=== PATIENT | female | born 1965 | race Caucasian/White ===

== ENCOUNTER → 2017-07-17 | Outpatient (CLI) | payer MEDICARE, OTHER ==
[~2017-07-17] MED LIST: ALLO100 PO; ATOR40TA PO; ATORVASTATIN; Amoxicillin500 MG PO; CEFD300 PO; CELE200; CEPH500 PO; CODACE30 PO; CYCL10 PO; CYMBALTA; Cipro500 MG PO; DULO30; DULO30 PO; Diflucan100 MG PO; EXCEDRIN MIGRAINE; Excedrin Extra1 EACH PO; HYDACE10B PO; HYDACE5325 PO; HYDR1TAB94 PO; Hydrocodone-Ap1 EA20; Hydrocodone-Ap1 EA20 PO; Hydrocodone-Ap1 EA23; Hydrocodone-Ap1 EA23 PO; LISI20; LISI5 PO; MELO7.5 PO; METCAR500 PO; NAPR500 PO; NITR100CA PO; Naprosyn500 MG PO; Norco 10-325 T1 EACH PO; Norco 5-325 Ta1 EACH PO; OMEPRAZOLE MAGN20 MG PO; PROM25 PO; PSEU120ER; PSEU120ER PO; Prinivil10 MG PO; SUCR1 PO; Simvastatin20 MG PO; TAMS.4ER PO; Ultram50 MG PO; Zofran Odt4 MG PO; Zofran Odt4 MG SL
== END | disposition home or self-care (01) ==
LOC: LAB 14:23
DX: R30.0 Dysuria (principal); R31.9 Hematuria, unspecified; R39.89 Other symptoms and signs involving the genitourinary system
CPT/HCPCS: 87086

== ENCOUNTER 2017-07-18 17:59 | Emergency (ER) | payer MEDICARE, OTHER ==
[~2017-07-18] VITALS: Ht 165.1 cm; Wt 99.8 kg
[~2017-07-18 17:59] MED LIST changes: -ALLO100 PO; -ATOR40TA PO; -ATORVASTATIN; -Amoxicillin500 MG PO; -CEFD300 PO; -CELE200; -CYMBALTA; -DULO30; -DULO30 PO; -Excedrin Extra1 EACH PO; -HYDR1TAB94 PO; -Hydrocodone-Ap1 EA20; -Hydrocodone-Ap1 EA23; -Hydrocodone-Ap1 EA23 PO; -LISI20; -MELO7.5 PO; -NITR100CA PO; -Norco 10-325 T1 EACH PO; -OMEPRAZOLE MAGN20 MG PO; -Prinivil10 MG PO; -SUCR1 PO; -TAMS.4ER PO; -Ultram50 MG PO; -Zofran Odt4 MG PO
[2017-07-18 19:20] LABS: BASOPHILS ABSOLUTE AUTO 0.03 K/mm3 (0.00-0.23); BASOPHILS PERCENT AUTO 0 % (0-2); EOSINOPHILS ABSOLUTE AUTO 0.15 K/mm3 (0.00-0.68); EOSINOPHILS PERCENT AUTO 1 % (0-6); Hematocrit 48.7 % (33.0-51.0); Hemoglobin 16.3 g/dL (11.5-16.0); IMMATURE GRAN ABSOLUTE AUTO 0.04 K/mm3 (0.00-0.10); IMMATURE GRAN PERCENT AUTO 0 % (0-1); LYMPHOCYTES ABSOLUTE AUTO 0.82 K/mm3 (0.84-5.20); LYMPHOCYTES PERCENT AUTO 6 % (21-46); MONOCYTES ABSOLUTE AUTO 0.63 K/mm3 (0.16-1.47); MONOCYTES PERCENT AUTO 4 % (4-13); Mean Corpuscular HGB 30.8 pg (26.0-34.0); Mean Corpuscular HGB Conc 33.5 g/dL (31.5-36.5); Mean Corpuscular Volume 92 fL (80-100); Mean Platelet Volume 9.7 fL (9.1-12.4); NEUTROPHILS ABSOLUTE AUTO 12.79 K/mm3 (1.96-9.15); NEUTROPHILS PERCENT AUTO 88 % (41-73); Platelet Count 338 K/mm3 (150-400); RDW Coefficient Variation 13.6 % (11.7-14.2); RDW Standard Deviation 45.8 fL (35.1-46.3); White Blood Cell Count 14.46 K/mm3 (4.00-11.30)
[2017-07-18 19:46] LABS: Alanine Aminotransfer (ALT/SGP 28 U/L (12-78); Albumin, Blood 3.9 g/dL (3.4-5.0); Alk Phos 104 U/L (50-136); Anion Gap 7 mmol/L (6-16); Aspartate Aminotrans (AST/SGOT 18 U/L (12-37); Bilirubin, Total 0.4 mg/dL (0.1-1.0); Blood Urea Nitrogen 7 mg/dL (8-24); Bun/Creatinine Ratio 11.6 (12.0-20.0); CO2, Blood 24 mmol/L (21-32); Chloride, Blood 107 mmol/L (98-108); Globulin, Blood 4.1 g/dL (2.2-4.0); Glomerular Filtration Rate >60 (60-); Glucose, Blood 122 mg/dL (70-99); Potassium, Blood 4.2 mmol/L (3.5-5.5); Sodium, Blood 138 mmol/L (136-145); Troponin I <0.015 ng/mL (0.000-0.040)
[2017-07-18 20:57] LABS: Source, Urine Clean Catch
[2017-07-18 21:09] LABS: Bilirubin, Urine Neg (Neg); Blood, Urine 3+ (Neg); Glucose Qualitative, Urine Neg (Neg); Ketones, Urine 1+ (Neg); Leukocyte Esterase, Urine 2+ (Neg); Nitrite, Urine Neg (Neg); Protein, Urine Neg (Neg); Specific Gravity, Urine 1.015 (1.003-1.022); Urobilinogen, Urine 2+ (Normal)
[2017-07-18 21:17] LABS: Appearance, Urine Clear (Clear); Color, Urine Amber (P-Yellow)
[2017-07-18 21:19] LABS: Bacteria Mod /hpf; Calcium Oxalate Crystals Few /hpf; Red Blood Cells, Urine 0-2 /hpf (0-2); Squamous Epithelial Cells Few /hpf (Few); White Blood Cells, Urine 0-2 /hpf (0-5)
[2017-07-18] MEDS ORDERED: Amoxicillin500 MG PO (22:04)
[2017-07-18] MEDS ORDERED: HYDR1TAB94 PO (22:05)
[2017-11-07] MEDS ORDERED: Hydrocodone-Ap1 EA20 (11:50)
[2017-11-07] MEDS ORDERED: TAMS.4ER PO (11:50)
[2017-11-07] MEDS ORDERED: Prinivil10 MG PO (11:50)
[2017-11-07] MEDS ORDERED: DULO30 (11:50)
[2017-11-07] MEDS ORDERED: ATOR40TA PO (11:50)
[2017-11-07] MEDS ORDERED: Hydrocodone-Ap1 EA23 (11:50)
[2017-11-07] MEDS ORDERED: LISI20 (11:50)
[2017-11-07] MEDS ORDERED: CELE200 (11:50)
[2017-11-07] MEDS ORDERED: OMEPRAZOLE MAGN20 MG PO (12:42)
[2017-11-07] MEDS ORDERED: SUCR1 PO (12:42)
[2017-11-22] MEDS ORDERED: Ultram50 MG PO (02:33)
== END 2017-07-18 23:20 | disposition home or self-care (01) ==
LOC: ER 17:59
PROVIDERS: Physician Assistant
DX: N20.0 Calculus of kidney (principal); F17.200 Nicotine dependence, unspecified, uncomplicated; Z88.2 Allergy status to sulfonamides; Z88.7 Allergy status to serum and vaccine; Z88.5 Allergy status to narcotic agent; Z79.899 Other long term (current) drug therapy; Z87.442 Personal history of urinary calculi
CPT/HCPCS: 36415; 71046; 74176; 80053; 81001; 84484; 85025; 87086; 93005; 93010; 96361; 96374; 96375; 96376; 99284; J0696; J1170; J1885; J2405; J7030

== ENCOUNTER 2017-08-26 00:13 | Day surgery (SDC) | payer MEDICARE, OTHER ==
[~2017-08-26 00:13] MED LIST changes: +Amoxicillin500 MG PO; +HYDR1TAB94 PO
[2017-11-07] MEDS ORDERED: LISI20 (11:50)
[2017-11-07] MEDS ORDERED: Hydrocodone-Ap1 EA20 (11:50)
[2017-11-07] MEDS ORDERED: Prinivil10 MG PO (11:50)
[2017-11-07] MEDS ORDERED: TAMS.4ER PO (11:50)
[2017-11-07] MEDS ORDERED: DULO30 (11:50)
[2017-11-07] MEDS ORDERED: ATOR40TA PO (11:50)
[2017-11-07] MEDS ORDERED: Hydrocodone-Ap1 EA23 (11:50)
[2017-11-07] MEDS ORDERED: CELE200 (11:50)
[2017-11-07] MEDS ORDERED: OMEPRAZOLE MAGN20 MG PO (12:42)
[2017-11-07] MEDS ORDERED: SUCR1 PO (12:42)
[2017-11-22] MEDS ORDERED: Ultram50 MG PO (02:33)
== END 2017-08-26 22:51 | disposition home or self-care (01) ==
LOC: WOUND 00:13
DX: Z48.00 Encounter for change or removal of nonsurgical wound dressing (principal); S71.001A Unspecified open wound, right hip, initial encounter; E66.9 Obesity, unspecified; F17.210 Nicotine dependence, cigarettes, uncomplicated; S80.821A Blister (nonthermal), right lower leg, initial encounter
CPT/HCPCS: G0463

== ENCOUNTER 2017-10-27 02:22 | Emergency (ER) | payer MEDICARE, OTHER ==
[~2017-10-27] VITALS: Ht 165.1 cm; Wt 102.1 kg
[2017-10-27] MEDS ORDERED: CYMBALTA (02:43)
[2017-10-27] MEDS ORDERED: ATORVASTATIN (02:43)
[2017-10-27 02:57] LABS: Blood, Urine 2+ (Neg); Glucose Qualitative, Urine Neg (Neg); Ketones, Urine Neg (Neg); Leukocyte Esterase, Urine 2+ (Neg); Nitrite, Urine Neg (Neg); Protein, Urine 2+ (Neg); Specific Gravity, Urine 1.025 (1.003-1.022); Urobilinogen, Urine 1+ (Normal)
[2017-10-27 02:57] LABS: BASOPHILS ABSOLUTE AUTO 0.05 K/mm3 (0.00-0.23); BASOPHILS PERCENT AUTO 1 % (0-2); EOSINOPHILS ABSOLUTE AUTO 0.19 K/mm3 (0.00-0.68); EOSINOPHILS PERCENT AUTO 2 % (0-6); Hematocrit 46.2 % (33.0-51.0); Hemoglobin 15.6 g/dL (11.5-16.0); IMMATURE GRAN ABSOLUTE AUTO 0.04 K/mm3 (0.00-0.10); IMMATURE GRAN PERCENT AUTO 0 % (0-1); LYMPHOCYTES ABSOLUTE AUTO 2.91 K/mm3 (0.84-5.20); LYMPHOCYTES PERCENT AUTO 32 % (21-46); MONOCYTES ABSOLUTE AUTO 0.75 K/mm3 (0.16-1.47); MONOCYTES PERCENT AUTO 8 % (4-13); Mean Corpuscular HGB 30.3 pg (26.0-34.0); Mean Corpuscular HGB Conc 33.8 g/dL (31.5-36.5); Mean Corpuscular Volume 90 fL (80-100); Mean Platelet Volume 9.3 fL (9.1-12.4); NEUTROPHILS ABSOLUTE AUTO 5.13 K/mm3 (1.96-9.15); NEUTROPHILS PERCENT AUTO 57 % (41-73); Platelet Count 316 K/mm3 (150-400); RDW Standard Deviation 42.7 fL (35.1-46.3); Red Blood Cell Count 5.15 M/mm3 (3.80-5.20); White Blood Cell Count 9.07 K/mm3 (4.00-11.30)
[2017-10-27 03:04] LABS: Appearance, Urine Cloudy (Clear); Bilirubin, Urine 1+ (Neg); Color, Urine Yellow (P-Yellow)
[2017-10-27 03:05] LABS: Amorphous Light (0-Heavy); Bacteria Many /hpf; Calcium Oxalate Crystals Mod /hpf; Mucus Light (0-Heavy); Red Blood Cells, Urine 0-2 /hpf (0-2); Squamous Epithelial Cells Many /hpf (Few)
[2017-10-27 03:15] LABS: Alanine Aminotransfer (ALT/SGP 37 U/L (12-78); Albumin, Blood 3.8 g/dL (3.4-5.0); Alk Phos 112 U/L (50-136); Anion Gap 6 mmol/L (6-16); Aspartate Aminotrans (AST/SGOT 21 U/L (12-37); Bilirubin, Total 0.2 mg/dL (0.1-1.0); Blood Urea Nitrogen 16 mg/dL (8-24); Bun/Creatinine Ratio 26.8 (12.0-20.0); CO2, Blood 22 mmol/L (21-32); Calcium, Blood 9.4 mg/dL (8.5-10.1); Chloride, Blood 111 mmol/L (98-108); Globulin, Blood 3.9 g/dL (2.2-4.0); Glomerular Filtration Rate >60 (60-); Glucose, Blood 122 mg/dL (70-99); Potassium, Blood 4.3 mmol/L (3.5-5.5); Sodium, Blood 139 mmol/L (136-145); Total Protein, Blood 7.7 g/dL (6.4-8.2)
[2017-10-27] MEDS ORDERED: Norco 10-325 T1 EACH PO (04:08)
== END 2017-10-27 04:30 | disposition home or self-care (01) ==
LOC: ER 02:22
PROVIDERS: Emergency Medicine
DX: N20.0 Calculus of kidney (principal); F17.210 Nicotine dependence, cigarettes, uncomplicated; Z88.2 Allergy status to sulfonamides; Z88.7 Allergy status to serum and vaccine; Z88.5 Allergy status to narcotic agent; Z79.899 Other long term (current) drug therapy; Z87.442 Personal history of urinary calculi
CPT/HCPCS: 36415; 74176; 80053; 81001; 81025; 85025; 87086; 96374; 96375; 96376; 99284; J1885; J2405; J3010; J7030

== ENCOUNTER → 2017-10-30 | Outpatient (CLI) | payer MEDICARE, OTHER ==
[~2017-10-30] MED LIST changes: +ATORVASTATIN; +CYMBALTA; +Norco 10-325 T1 EACH PO
[2017-10-30 16:25] LABS: Source, Urine Clean Catch
[2017-10-30 18:00] LABS: Appearance, Urine Clear (Clear); Bilirubin, Urine Neg (Neg); Blood, Urine 3+ (Neg); Color, Urine Yellow (P-Yellow); Glucose Qualitative, Urine Neg (Neg); Ketones, Urine Neg (Neg); Leukocyte Esterase, Urine 2+ (Neg); Nitrite, Urine Neg (Neg); Protein, Urine Neg (Neg); Urobilinogen, Urine 1+ (Normal)
[2017-10-30 18:09] LABS: Bacteria Not Seen /hpf; Red Blood Cells, Urine Not Seen /hpf (0-2); Squamous Epithelial Cells Many /hpf (Few); White Blood Cells, Urine Not Seen /hpf (0-5)
[2017-10-30 18:10] LABS: Calcium Oxalate Crystals Many /hpf
== END | disposition home or self-care (01) ==
LOC: LAB SHORT 16:22 → LAB 16:22 → LAB FUT 10-29 16:25
PROVIDERS: Urology
DX: N39.0 Urinary tract infection, site not specified (principal)
CPT/HCPCS: 81001; 87086

== ENCOUNTER 2017-12-05 19:29 | Emergency (ER) | payer MEDICARE ==
[~2017-12-05] VITALS: Ht 165.1 cm; Wt 102.1 kg
[~2017-12-05 19:29] MED LIST changes: +ATOR40TA PO; +CELE200; +DULO30; +Hydrocodone-Ap1 EA20; +Hydrocodone-Ap1 EA23; +LISI20; +OMEPRAZOLE MAGN20 MG PO; +Prinivil10 MG PO; +SUCR1 PO; +TAMS.4ER PO; +Ultram50 MG PO
[2017-12-05] MEDS ORDERED: MELO7.5 PO (20:15)
[2017-12-05] MEDS ORDERED: Excedrin Extra1 EACH PO (20:16)
== END 2017-12-05 21:35 | disposition home or self-care (01) ==
LOC: ER 19:29
DX: R51 Headache (principal); M54.2 Cervicalgia; Z88.2 Allergy status to sulfonamides; Z88.7 Allergy status to serum and vaccine; Z88.5 Allergy status to narcotic agent; Z79.899 Other long term (current) drug therapy; Z87.442 Personal history of urinary calculi; F17.210 Nicotine dependence, cigarettes, uncomplicated
CPT/HCPCS: 96361; 96374; 96375; 99283; J1200; J1885; J2765; J7120

== ENCOUNTER → 2017-12-22 | Outpatient (CLI) | payer MEDICARE, OTHER ==
[~2017-12-22] MED LIST changes: +Excedrin Extra1 EACH PO; +MELO7.5 PO
[2017-12-23 08:27] LABS: Source, Urine Clean Catch
[2017-12-23 13:26] LABS: Blood, Urine 2+ (Neg); Glucose Qualitative, Urine Neg (Neg); Ketones, Urine Neg (Neg); Leukocyte Esterase, Urine 3+ (Neg); Nitrite, Urine Neg (Neg); Protein, Urine 2+ (Neg); Urobilinogen, Urine 1+ (Normal)
[2017-12-23 13:27] LABS: Bilirubin, Urine 1+ (Neg)
[2017-12-23 13:29] LABS: Appearance, Urine Turbid (Clear); Color, Urine Yellow (P-Yellow)
[2017-12-23 13:30] LABS: Amorphous Light (0-Heavy); Bacteria Few /hpf; Red Blood Cells, Urine 0-2 /hpf (0-2); Squamous Epithelial Cells Few /hpf (Few)
[2017-12-23 13:31] LABS: Calcium Oxalate Crystals Few /hpf
== END ==
LOC: LAB 19:00 → LAB SHORT 19:00
PROVIDERS: Nurse Practitioner Family
DX: R30.0 Dysuria (principal)
CPT/HCPCS: 81001

== ENCOUNTER 2018-03-02 10:41 | Day surgery (SDC) | payer MEDICARE, OTHER ==
[2018-03-02 12:03] LABS: Performing Lab VERACYTE; Test Name FNA
== END 2018-03-02 22:40 | disposition home or self-care (01) ==
LOC: US 10:41
PROVIDERS: Nurse Practitioner Family
PROC: 0GBH3ZX Excision of Right Thyroid Gland Lobe, Percutaneous Approach, Diagnostic (ICD-10-PCS; principal; 2018-03-02)
DX: E04.2 Nontoxic multinodular goiter (principal)
CPT/HCPCS: 10022; 76942

== ENCOUNTER 2018-05-08 08:59 | Emergency (ER) | payer MEDICARE, OTHER ==
[~2018-05-08] VITALS: Ht 165.1 cm; Wt 99.8 kg
[2018-05-08] MEDS ORDERED: NITR100CA PO (09:28)
[2018-05-08] MEDS ORDERED: DULO30 PO (09:28)
[2018-05-08] MEDS ORDERED: ALLO100 PO (09:29)
[2018-05-08] MEDS ORDERED: Hydrocodone-Ap1 EA23 PO (09:30)
[2018-05-08 09:44] LABS: Source, Urine Clean Catch
[2018-05-08 09:54] LABS: Bilirubin, Urine Neg (Neg); Blood, Urine 2+ (Neg); Glucose Qualitative, Urine Neg (Neg); Ketones, Urine Neg (Neg); Leukocyte Esterase, Urine 2+ (Neg); Nitrite, Urine Neg (Neg); Protein, Urine Neg (Neg); Urobilinogen, Urine NORM (Normal)
[2018-05-08 10:14] LABS: Appearance, Urine Clear (Clear); Color, Urine Yellow (P-Yellow)
[2018-05-08 10:16] LABS: White Blood Cells, Urine 25-50 /hpf (0-5)
[2018-05-08 10:17] LABS: Bacteria Few /hpf; Red Blood Cells, Urine 0-2 /hpf (0-2); Squamous Epithelial Cells Mod /hpf (Few)
[2018-05-08 10:40] LABS: BASOPHILS ABSOLUTE AUTO 0.06 K/mm3 (0.00-0.23); BASOPHILS PERCENT AUTO 0 % (0-2); EOSINOPHILS PERCENT AUTO 1 % (0-6); Hematocrit 44.6 % (33.0-51.0); Hemoglobin 14.6 g/dL (11.5-16.0); IMMATURE GRAN ABSOLUTE AUTO 0.06 K/mm3 (0.00-0.10); IMMATURE GRAN PERCENT AUTO 0 % (0-1); LYMPHOCYTES ABSOLUTE AUTO 1.49 K/mm3 (0.84-5.20); LYMPHOCYTES PERCENT AUTO 9 % (21-46); MONOCYTES ABSOLUTE AUTO 0.51 K/mm3 (0.16-1.47); MONOCYTES PERCENT AUTO 3 % (4-13); Mean Corpuscular HGB 29.8 pg (26.0-34.0); Mean Corpuscular HGB Conc 32.7 g/dL (31.5-36.5); Mean Corpuscular Volume 91 fL (80-100); NEUTROPHILS ABSOLUTE AUTO 13.62 K/mm3 (1.96-9.15); NEUTROPHILS PERCENT AUTO 85 % (41-73); Platelet Count 304 K/mm3 (150-400); RDW Coefficient Variation 13.2 % (11.7-14.2); RDW Standard Deviation 44.6 fL (35.1-46.3); White Blood Cell Count 15.94 K/mm3 (4.00-11.30)
[2018-05-08 11:09] LABS: Anion Gap 9 mmol/L (6-16); Blood Urea Nitrogen 13 mg/dL (8-24); Bun/Creatinine Ratio 18.5 (12.0-20.0); CO2, Blood 22 mmol/L (21-32); Calcium, Blood 9.4 mg/dL (8.5-10.1); Chloride, Blood 108 mmol/L (98-108); Glomerular Filtration Rate >60 (60-); Glucose, Blood 122 mg/dL (70-99); Potassium, Blood 3.9 mmol/L (3.5-5.5); Sodium, Blood 139 mmol/L (136-145)
[2018-05-08] MEDS ORDERED: CEFD300 PO (11:36)
[2018-05-08] MEDS ORDERED: Zofran Odt4 MG PO (11:36)
== END 2018-05-08 12:00 | disposition home or self-care (01) ==
LOC: ER 08:59
PROVIDERS: Emergency Medicine
DX: N12 Tubulo-interstitial nephritis, not specified as acute or chronic (principal); Z88.2 Allergy status to sulfonamides; Z88.7 Allergy status to serum and vaccine; Z88.5 Allergy status to narcotic agent; Z79.899 Other long term (current) drug therapy; Z87.442 Personal history of urinary calculi; Z87.891 Personal history of nicotine dependence
CPT/HCPCS: 36415; 80048; 81001; 85025; 87086; 96361; 96365; 96375; 99284-25; J0696; J1885; J2405; J7030

== ENCOUNTER → 2018-07-04 | Outpatient (CLI) | payer MEDICARE, OTHER ==
[~2018-07-04] MED LIST changes: +ALLO100 PO; +CEFD300 PO; +DULO30 PO; +Hydrocodone-Ap1 EA23 PO; +NITR100CA PO; +Zofran Odt4 MG PO
== END | disposition home or self-care (01) ==
LOC: LAB SHORT 16:54 → LAB EV 16:54
DX: N12 Tubulo-interstitial nephritis, not specified as acute or chronic (principal)
CPT/HCPCS: 87086

== ENCOUNTER 2019-12-12 12:25 | Day surgery (SDC) | payer MEDICARE, OTHER ==
[~2019-12-12] VITALS: Ht 165.1 cm; Wt 110.5 kg
[~2019-12-12 12:25] MED LIST changes: +Flonase 0.05% N16 GM; +METF500C; +OMEP20ER; +ZESTRIL40 M2
== END 2019-12-12 15:06 | disposition home or self-care (01) ==
LOC: ORSCSDS 12:25
PROVIDERS: Orthopaedic Surgery
PROC: 0LN70ZZ Release Right Hand Tendon, Open Approach (ICD-10-PCS; principal; 2019-12-12 13:50)
PROC: 01N50ZZ Release Median Nerve, Open Approach (ICD-10-PCS; principal; 2019-12-12 13:50)
DX: G56.01 Carpal tunnel syndrome, right upper limb (principal); I10 Essential (primary) hypertension; E11.9 Type 2 diabetes mellitus without complications; E78.5 Hyperlipidemia, unspecified; E78.00 Pure hypercholesterolemia, unspecified; E66.01 Morbid (severe) obesity due to excess calories; Z68.39 Body mass index [BMI] 39.0-39.9, adult; F17.210 Nicotine dependence, cigarettes, uncomplicated; Z79.82 Long term (current) use of aspirin; Z79.899 Other long term (current) drug therapy; Z79.84 Long term (current) use of oral hypoglycemic drugs
CPT/HCPCS: 82947; 93005; 93010; J0690; J2250; J7120

== ENCOUNTER → 2022-04-18 | Outpatient (CLI) | payer OTHER ==
[~2022-04-18] MED LIST changes: +CHLO25B PO; +Chantix1 MG; +Estradiol0.5 MG PO; +HYDACE10B; +HYDCHL25 PO; +LISI10 PO; +METO50ER PO; +OMEP20ER PO; +PIOG30 PO; +POTCIT10 PO; +Robaxin750 MG PO
[2022-04-18 13:14] LABS: BASOPHILS ABSOLUTE AUTO 0.05 K/mm3 (0.00-0.23); BASOPHILS PERCENT AUTO 1 % (0-2); EOSINOPHILS ABSOLUTE AUTO 0.13 K/mm3 (0.00-0.68); EOSINOPHILS PERCENT AUTO 2 % (0-6); Hematocrit 39.5 % (33.0-51.0); Hemoglobin 13.4 g/dL (11.5-16.0); IMMATURE GRAN ABSOLUTE AUTO 0.03 K/mm3 (0.00-0.10); IMMATURE GRAN PERCENT AUTO 0 % (0-1); LYMPHOCYTES ABSOLUTE AUTO 2.96 K/mm3 (0.84-5.20); LYMPHOCYTES PERCENT AUTO 42 % (21-46); MONOCYTES ABSOLUTE AUTO 0.41 K/mm3 (0.16-1.47); MONOCYTES PERCENT AUTO 6 % (4-13); Mean Corpuscular HGB 29.8 pg (26.0-34.0); Mean Corpuscular HGB Conc 33.9 g/dL (31.5-36.5); Mean Corpuscular Volume 88 fL (80-100); Mean Platelet Volume 10.2 fL (9.1-12.4); NEUTROPHILS ABSOLUTE AUTO 3.51 K/mm3 (1.96-9.15); NEUTROPHILS PERCENT AUTO 50 % (41-73); Platelet Count 355 K/mm3 (150-400); RDW Coefficient Variation 12.8 % (11.7-14.2); RDW Standard Deviation 40.3 fL (35.1-46.3); White Blood Cell Count 7.09 K/mm3 (4.00-11.30)
[2022-04-18 15:02] LABS: Bilirubin, Total 0.4 mg/dL (0.1-1.0); Bun/Creatinine Ratio 34.1 (12.0-20.0); Calcium, Blood 10.4 mg/dL (8.5-10.1); Creatinine, Blood 1.32 mg/dL (0.40-1.00); Globulin, Blood 4.1 g/dL (2.2-4.0); Total Protein, Blood 8.1 g/dL (6.4-8.2)
== END | disposition home or self-care (01) ==
LOC: LAB 13:07 → LAB SHORT 13:07
PROVIDERS: Physician Assistant
DX: R42 Dizziness and giddiness (principal)
CPT/HCPCS: 80053; 84484; 85025

== ENCOUNTER → 2022-06-03 | Outpatient (CLI) | payer OTHER | END | disposition home or self-care (01) | LOC: LAB 09:22 → LAB SHORT 09:22 | DX: D35.00 Benign neoplasm of unspecified adrenal gland (principal) | CPT/HCPCS: 81050 ==

== ENCOUNTER → 2022-07-15 | Outpatient (CLI) | payer OTHER | END | disposition home or self-care (01) | LOC: LAB 12:00 → LAB SHORT 12:00 | DX: N39.0 Urinary tract infection, site not specified (principal) | CPT/HCPCS: 87086 ==

== ENCOUNTER → 2022-07-15 | Outpatient (CLI) | payer OTHER ==
[2022-07-15 17:52] LABS: Microalb/Creat Ratio UR, Rand 15.344 mg/g (0.000-30.000); Microalbumin, Random Urine 20.1 mg/L (0.000-20.000)
== END | disposition home or self-care (01) ==
LOC: LAB 12:00 → LAB SHORT 12:00
PROVIDERS: Family Medicine
DX: E11.22 Type 2 diabetes mellitus with diabetic chronic kidney disease (principal); N18.9 Chronic kidney disease, unspecified; E11.65 Type 2 diabetes mellitus with hyperglycemia; E11.69 Type 2 diabetes mellitus with other specified complication
CPT/HCPCS: 82043; 82570

== ENCOUNTER → 2022-10-27 | Outpatient (CLI) | payer OTHER ==
[2022-10-31 15:07] LABS: HPV 16 Negative (Negative); HPV 18 Negative (Negative); HPV OTHER HR TYPES Negative (Negative)
== END | disposition home or self-care (01) ==
LOC: LAB SHORT 17:34 → LAB 17:34
PROVIDERS: Family Medicine
DX: Z01.419 Encounter for gynecological examination (general) (routine) without abnormal findings (principal)
CPT/HCPCS: 87624; G0145

== ENCOUNTER → 2024-05-10 | Outpatient (CLI) | payer OTHER ==
[2024-05-11 11:54] LABS: Campylobacter Sp Not Detected (NOT DETECT); Plesiomonas Shigelloides Not Detected (NOT DETECT); Salmonella Sp Not Detected (NOT DETECT)
[2024-05-11 11:55] LABS: Adenovirus F 40/41 Not Detected (NOT DETECT); Astrovirus Not Detected (NOT DETECT); Cryptosporidium Not Detected (NOT DETECT); Cyclospora Cayetanensis Not Detected (NOT DETECT); E. Coli O157 Not Detected (NOT DETECT); Entamoeba Histolytica Not Detected (NOT DETECT); Enteroaggregative E. coli-EAEC Not Detected (NOT DETECT); Enteropathogenic E. coli-EPEC Not Detected (NOT DETECT); Enterotoxigenic E. coli-ETEC Not Detected (NOT DETECT); Giardia Lamblia Not Detected (NOT DETECT); Norovirus GI/GII Not Detected (NOT DETECT); Rotavirus A Not Detected (NOT DETECT); Sapovirus Not Detected (NOT DETECT); Shiga Toxin-prod E. coli-STEC Not Detected (NOT DETECT); Shigella/Enteroin E. coli-EIEC Not Detected (NOT DETECT); Vibrio Cholerae Not Detected (NOT DETECT); Vibrio Sp Not Detected (NOT DETECT); Yersinia Enterocolitica Not Detected (NOT DETECT)
== END ==
LOC: LAB 15:23 → LAB SHORT 15:23
PROVIDERS: Family Medicine
DX: R19.7 Diarrhea, unspecified (principal)
CPT/HCPCS: 87507

== ENCOUNTER → 2024-08-18 | Outpatient (CLI) | payer OTHER ==
[2024-08-18 20:02] LABS: Calcium, Urine 26.4 mg/dL (< 17.5); Calcium, Urine Calculation 541.2 mg/24hrs (42.0-353.0)
== END ==
LOC: LAB SHORT 13:44 → LAB 13:44
PROVIDERS: Internal Medicine Endocrinology, Diabetes & Metabolism
DX: E21.3 Hyperparathyroidism, unspecified (principal)
CPT/HCPCS: 81050; 82340; 82570